=== PATIENT | female | born 1995 | race Two or more races ===

== ENCOUNTER 2021-05-03 01:37 | Emergency (ER) | payer OTHER ==
[~2021-05-03] VITALS: Ht 160 cm; Wt 83.9 kg
[2021-05-03 01:54] VITALS: BP 145/92
--- NOTE | 2021-05-03 01:56 | PHYS DOC ---
Adult General Chief Complaint Chief Complaint: SHORTNESS OF BREATH HPI HPI Patient is a 26-year-old female, otherwise healthy who was diagnosed with COVID on Wednesday who presents with body aches, chills and fatigue who states that she feels terrible keeps waking up at night with the chills. States the only medicine she takes is a small amount of NyQuil at night before she goes to bed. States she had seen her doctor. States he is able to eat and drink normally. States he is making urine and stool normally for her. Review of Systems Review of Systems Review of systems otherwise unremarkable except noted in HPI Physical Exam Physical Exam Constitutional: Well developed, well nourished, no acute distress, non-toxic a ppearance. [] HENT: Normocephalic, atraumatic, bilateral external ears normal, oropharynx moist, no oral exudates, nose normal. [] Eyes:conjunctiva normal, no discharge. [] Neck: Normal range of motion, no tenderness, supple, no stridor. [] Cardiovascular:Heart rate regular rhythm, no murmur [] Lungs & Thorax: Bilateral breath sounds clear to auscultation [] Abdomen: Bowel sounds normal, soft, no tenderness, no masses, no pulsatile masses. [] Skin: Warm, dry, no erythema, no rash. [] Back: No tenderness, no CVA tenderness. [] Extremities: No tenderness, no cyanosis, no clubbing, ROM intact, no edema. [] Neurologic: Alert and oriented X 3, normal motor function, normal sensory function, no focal deficits noted. [] Psychologic: Affect normal, judgement normal, mood normal. [] EKG EKG [] Radiology/Procedures Radiology/Procedures [] Heart Score C/O Chest Pain: No Risk Factors: Risk Factors: DM, Current or recent (<one month) smoker, HTN, HLP, family history of CAD, obesity. Risk Scores: Risk Factors: DM, Current or recent (<one month) smoker, HTN, HLP, family history of CAD, obesity. Course & Med Decision Making Course & Med Decision Making Patient is a 26-year-old female, COVID-positive who presents with body aches, chills and fatigue and trouble sleeping Signs not concerning. Physical exam noted above. Patient has not taken any medicines except very half a cup of NyQuil at night. Given medications for symptom control. Discussed symptom control at home. Given COVID education and quarantine instructions. Advised to follow-up on Wednesday with primary care physician. Gave return precautions to the ED. Patient grateful, verbalized understanding and agreed with plan of discharge. [] Dragon Disclaimer Dragon Disclaimer This electronic medical record was generated, in whole or in part, using a voice recognition dictation system. Departure Departure: Impression: Primary Impression: Viral syndrome Additional Impression: Lab test positive for detection of COVID-19 virus Disposition: HOME / SELF CARE / HOMELESS Condition: STABLE Referrals: PCP,UNKNOWN (PCP) GLORIA JONES Patient Instructions: Viral Syndrome Additional Instructions: Thank you for coming into the emergency department tonight and allowing us to take care of you. Please read the attached information carefully to go over things we discussed. Please take 1000 mg of Tylenol every 6 hours, 600 mg of ibuprofen every 6 hours, 50 mg of Benadryl every 6 hours as we discussed. You can use cough drops for your sore throat. He can also use [id number] cough medicine such as Robitussin or Delsym. Please contact your primary care physician on Wednesday to update on your ED visit and set up a follow-up as soon as you can. Please come back with new or concerning symptoms as discussed. Problem Qualifiers JENNIFER CHINCHILLA MD May 03, 2021 01:56
[2021-05-03] MEDS ORDERED: guaiFENesin/CODEINE 100mg/10mg 5 ML LIQUID PO PRN (02:00)
[2021-05-03] MEDS ORDERED: IBUPROFEN 600 MG TABLET. PO ONE (02:00)
[2021-05-03] MEDS ORDERED: ACETAMINOPHEN 500 MG TABLET PO ONE (02:00)
[2021-05-03] MEDS ORDERED: diphenhydrAMINE HCL 25 MG CAPSULE PO ONE (02:00)
== END 2021-05-03 02:25 | disposition home or self-care (01) ==
LOC: ER 01:37
DX: U07.1 COVID-19 (principal); B34.9 Viral infection, unspecified
CPT/HCPCS: 99284; Q0163